=== PATIENT | female | born 1990 | race Two or more races ===

== ENCOUNTER 2020-03-01 05:27 | Day surgery (SDC) | payer OTHER ==
[~2020-03-01 05:27] MED LIST: KLONOPIN0.5 MG/TAB; LAMICTAL150 MG; LASIX20 MG; LEXAPRO5 MG; LISINOPRIL20 MG; PROZAC40 MG; WELLBUTRIN SR200 MG
== END 2020-03-01 13:30 | disposition home or self-care (01) ==
LOC: CIR.AMB 05:27 → ADM 10:30 → CIR.AMB 11:30
PROVIDERS: ATTEND Obstetrics & Gynecology
DX: N84.0 Polyp of corpus uteri (principal)

== ENCOUNTER 2021-02-22 14:50 | Emergency (ER) | payer OTHER ==
[~2021-02-22] VITALS: Ht 162.6 cm; Wt 131.5 kg
[2021-02-22] MEDS ORDERED: PROZAC40 MG (15:24)
[2021-02-22] MEDS ORDERED: TRAZODONE HCL5 GM (15:24)
== END 2021-02-22 21:09 | disposition home or self-care (01) ==
LOC: ER 14:50
DX: R51.9 Headache, unspecified (principal); M54.89 Other dorsalgia; M54.2 Cervicalgia